=== PATIENT | female | born 2000 | race Two or more races ===

== ENCOUNTER 2025-04-09 22:31 | Emergency (ER) | payer MEDICAID, OTHER ==
[~2025-04-09] VITALS: Ht 170.2 cm; Wt 54.9 kg
[2025-04-10] MEDS ORDERED: IBUPROFEN 600 MG TABLET ONE (02:11)
[2025-04-10] MEDS: CYCLOBENZAPRINE 10 MG TABLET PO ONE (02:21)
[2025-04-10] MEDS: IBUPROFEN 600 MG TABLET PO ONE (02:22)
[2025-04-10] MEDS: CYCLOBENZAPRINE 10 MG TABLET ONE (02:24)
[2025-04-10] MEDS ORDERED: CYCL5TAB PO (02:39)
[2025-04-10 03:00] VITALS: BP 121/70; TEMP 98; O2SAT 99
== END 2025-04-10 03:00 | disposition home or self-care (01) ==
LOC: ER 22:48
DX: M54.2 Cervicalgia (principal); V43.52XA Car driver injured in collision with other type car in traffic accident, initial encounter; Y93.89 Activity, other specified; Y92.488 Other paved roadways as the place of occurrence of the external cause; Y99.8 Other external cause status